=== PATIENT | male | born 1965 | race Caucasian/White ===

== ENCOUNTER → 2018-05-16 | Outpatient (CLI) | payer OTHER ==
[~2018-05-16] MED LIST: BENZOCAINE ONE 20% MUCOSAL SPRAY.; IV NORMAL SALINE 500ML BAG 500 ML ONE; MIDAZOLAM HCL/PF 2 MG/2 ML VIAL. ONE; fentaNYL PF VIAL 100 MCG/2 ML VIAL ONE
--- NOTE | 2018-05-16 10:19 | PCVCIMAG ---
APPROVED REPORT Study performed: 05/16/2018 08:01:34 EXAM: Comprehensive 2D, Doppler, and color-flow Echocardiogram Patient Location: Echo lab Room #: 2Status: routine BSA: 2.29 HR: 90 bpmBP: 118/84 mmHg Rhythm: Atrial Fibrillation Other Information Study Quality: Good Risk Factors: Cardiac Risk Factors: HTN, Hyperlipidemia Indications Atrial Fibrillation Hypertension/HDD 2D Dimensions IVSd: 11.54 (7-11mm)LVOT Diam: 22.72 (18-24mm) LVDd: 47.85 mm PWd: 9.89 (7-11mm)Ascending Ao: 28.39 (22-36mm) LVDs: 30.90 (25-40mm) Left Atrium: 40.85 (27-40mm)Desc Ao: 21.0 (20-30mm) Aortic Root: 28.68 mm LV Single Plane 4CH: 50.25 % LV Single Plane 2CH: 59.48 % Biplane EF: 55.7 % Volumes Left Atrial Volume (Systole) Single Plane 4CH: 52.10 mLSingle Plane 2CH: 61.85 mL Biplane LA Volume: 58.00 mLLA ESV Index: 25.00 mL/m2 Aortic Valve AoV Peak Esteban.: 0.92 m/s AO Peak Gr.: 3.68 mmHgLVOT Max P.55 mmHg LVOT Max V: 0.60 m/s [place] Vmax: 2.64 cm2 Mitral Valve MV E Max Esteban.: 0.87 m/s MV PHT: 42.67 ms MVA (PHT): 5.16 cm2 IVRT: 83.04 ms TDI E/Lateral E': 6.21E/Medial E': 7.91 Medial E' Esteban.: 0.11 m/s Lateral E' Esteban.: 0.14 m/s Tricuspid Valve TR Peak Esteban.: 1.81 m/s TR Peak Gr.: 13.11 mmHg TV Vmax: 0.83 m/sPA Pressure: 20.00 mmHg Left Ventricle The left ventricle is normal size. There is normal LV segmental wall motion. Mild basal septal hypertrophy is present. Left ventricular systolic function is normal. The left ventricular ejection fraction is within the normal range. LVEF is 55-60%. This study is not technically sufficient to allow evaluation of the LV diastolic function due to atrial fibrillation. Right Ventricle The right ventricle is normal size. The right ventricular systolic function is normal. Atria The left atrium size is normal. The right atrium size is normal. Aortic Valve Aortic valve is trileaflet. No aortic regurgitation is present. There is no aortic valvular stenosis. Mitral Valve The mitral valve is normal in structure. Mild mitral regurgitation. No evidence of mitral valve stenosis. Tricuspid Valve The tricuspid valve is normal in structure. Trace to mild tricuspid regurgitation with a PA pressure of 20 mmHg. No pulmonary hypertension. Pulmonic Valve The pulmonary valve is normal in structure. Mild pulmonic regurgitation. Great Vessels The aortic root is normal in size. The ascending aorta is normal in size. Aortic arch is normal in caliber. IVC is normal in size and collapses >50% with inspiration. Pericardium There is no pericardial effusion. There is no pleural effusion. <Conclusion> Left ventricular systolic function is normal. There is normal LV segmental wall motion. LVEF 55-60%. Aortic valve is trileaflet. No aortic regurgitation or stenosis The mitral valve is normal in structure. Mild mitral regurgitation. Trace to mild tricuspid regurgitation with a pulmonary artery pressure of 20 mmHg. There is no pericardial effusion.
--- NOTE | 2018-05-16 13:03 | PCVCIMAG ---
APPROVED REPORT Study performed: 05/16/2018 09:00:03 EXAM: Transesophageal Echocardiogram with Cardioversion Patient Location: [facility] Room #: 1 Status: routine BSA: 2.29 HR: 104 bpmBP: 118/84 mmHg Rhythm: Atrial Fibrillation Other Information Study Quality: Good Indications Atrial Fibrillation Echo Enhancing Agent Indication: Rule out Shunt Agent(s) / Amount(s) Used: Agitated Saline 10 cc Comments: Negative bubble study for shunt flow. Procedure After obtaining informed consent, patient underwent transesophageal echo in the [employer]. Type of Sedation : Conscious Sedation Sedation was administered by Cyn Lala RN. Sedation start time: 09:35 Case end Time: 09:50 Sedation was achieved intravenously with: Versed (4 mg) Fentanyl (100mcg) Transesophageal probe was inserted and advanced into esophagus without difficulty by Yuri Walker MD. Echo enhancement indication: R/O Septal defect. Echo enhancement agent administered: Agitated Saline The HORACIO was performed without complications. Synchronized Cardioversion attempted: Successful Rhythm following Synchronized Cardioversion: Normal Sinus Rhythm Throughout the procedure, the blood pressure, pulse oximetry, cardiac rhythm, and rate were monitored. The patient tolerated the procedure without adverse effects. Recovery from conscious sedation was uneventful and vital signs were stable. Synchronozed Cardioversion was achieved: first attempt 50 cheri unsuccessful second attempt 100 cheri successful Left Ventricle The left ventricle is normal size. There is normal LV segmental wall motion. There is normal left ventricular wall thickness. The left ventricular systolic function is normal. The left ventricular ejection fraction is within the normal range. LVEF is 55-60%. Right Ventricle The right ventricle is normal size. The right ventricular systolic function is normal. Atria The left atrium size is normal. No thrombus is visualized in the left atrium or appendage. Interatrial septum is intact without evidence of ASD or PFO. The right atrium size is normal. Aortic Valve The aortic valve is normal in structure, trileaflet. No aortic regurgitation is present. There is no aortic valvular stenosis. Mitral Valve The mitral valve is normal in structure. Mild mitral regurgitation. Tricuspid Valve The tricuspid valve is normal in structure. Trace tricuspid regurgitation. Pulmonic Valve The pulmonary valve is normal in structure. There is no pulmonic valvular regurgitation. Great Vessels The aortic root is normal in size. The ascending aorta is normal in size. Aortic arch is normal in caliber. IVC is normal in size and collapses >50% with inspiration. Pericardium There is no pericardial effusion. There is no pleural effusion. <Conclusion> The left ventricular systolic function is normal. There is normal LV segmental wall motion. LVEF 55-60%. No thrombus is visualized in the left atrium or appendage. The aortic valve is normal in structure, trileaflet. No aortic regurgitation or stenosis The mitral valve is normal in structure. Mild mitral regurgitation. The tricuspid valve is normal in structure. There is no pericardial effusion. Successful cardioversion of atrial fibrillation to sinus following two synchronous shocks.
== END | disposition home or self-care (01) ==
LOC: PCVCIMAG 08:22
PROVIDERS: ATTEND Internal Medicine
DX: I34.0 Nonrheumatic mitral (valve) insufficiency (principal); I48.91 Unspecified atrial fibrillation; I10 Essential (primary) hypertension
CPT/HCPCS: 92960; 93005; 93306; 93312; 93325; J2250; J3010; J7040